=== PATIENT | male | born 1975 | race African-American/Black ===

== ENCOUNTER 2016-11-25 16:02 | Emergency (ER) | payer OTHER ==
[~2016-11-25] VITALS: Ht 188 cm; Wt 75.0 kg
[~2016-11-25 16:02] MED LIST: HYDR-3580 PO; IBUP800T23 PO; WHEEMIS3 XX
[2016-11-25 16:03] VITALS: BP 134/80; PULSE 83; RESP 12; TEMP 97.9; O2SAT 97
[2016-11-25 17:34] VITALS: BP 135/80; PULSE 60; RESP 16; TEMP 98.4; O2SAT 99
[2016-11-25 18:40] LABS: AUTOMATED NEUTROPHIL # 3.6 TH/MM3 (1.8-7.7); BASOPHIL # 0.1 TH/MM3 (0-0.2); BASOPHIL % 0.9 % (0.0-2.0); EOSINOPHIL # 0.2 TH/MM3 (0-0.4); EOSINOPHIL % 2.5 % (0.0-4.0); HEMATOCRIT 37.2 % (39.0-51.0); HEMO FLAGS DIFF FINAL; LYMPH % 30.7 % (9.0-44.0); MEAN CELL VOLUME 75.5 FL (80.0-100.0); MEAN CORPUSCULAR HEMOGLOBIN 24.4 PG (27.0-34.0); MEAN CORPUSCULAR HGB CONC 32.3 % (32.0-36.0); MONO % 11.5 % (0.0-8.0); NEUT % 54.4 % (16.0-70.0); PLATELET COUNT 175 TH/MM3 (150-450); RED BLOOD COUNT 4.93 MIL/MM3 (4.50-5.90); WHITE BLOOD COUNT 6.6 TH/MM3 (4.0-11.0)
[2016-11-25 18:44] LABS: BLOOD, URINE MOD (NEG); COMMENT (UR) CULT NOT INDICATED; CULTURE IF INDICATED CULT NOT INDICATED; GLUCOSE,URINE NEG (NEG); KETONE, URINE NEG (NEG); MUCUS URINE FEW /lpf (OCC); NITRITE,URINE NEG (NEG); PH, URINE 5.5 (5.0-8.5); URINE COLOR YELLOW (YELLW/STRAW)
[2016-11-25 18:54] LABS: ANION GAP 6 MEQ/L (5-15); AST (GOT) 32 U/L (15-37); BICARBONATE 26.3 MEQ/L (21.0-32.0); BLOOD UREA NITROGEN 12 MG/DL (7-18); CHLORIDE 106 MEQ/L (98-107); GLOMERULAR FILTRATION RATE 131 ML/MIN (>89); POTASSIUM 3.7 MEQ/L (3.5-5.1); SODIUM (NA) 138 MEQ/L (136-145)
[2016-11-25 18:56] LABS: ALT (GPT) 37 U/L (12-78)
[2016-11-25 18:57] LABS: ALKALINE PHOSPHATASE 62 U/L (45-117); TOTAL BILIRUBIN ADULT 0.3 MG/DL (0.2-1.0)
--- NOTE | 2016-11-25 19:05 | PD ---
HPI Chief Complaint: Complaint Time Seen by Provider: 17:38 Travel History International Travel<30 days: No Contact w/Intl Traveler<30days: No Traveled to known affect area: No History of Present Illness HPI This is a 41-year-old male who presents to the emergency department with blood in his urine. He says 2 days ago he had an episode of blood-tinged urine which spontaneously subsided. Today again he saw some blood in his urine, constant, moderate severity with no associated lightheadedness or dizziness. He felt like he had a little bit of burning when he urinated. He denies any fevers or chills. He's had one sexual partner in the past 6 months. He denies any Discharge from his penis. [facility] Past Medical History Medical History: Denies Significant Hx Influenza Vaccination: No Past Surgical History Genitourinary Surgery: Yes Social History Alcohol Use: Yes (OCC) Tobacco Use: Yes Substance Use: Yes (MARIJUANA) Allergies-Medications (Allergen,Severity, Reaction): Coded Allergies: No Known Allergies (Unverified , 11/25/16) Reported Meds & Prescriptions Reported Meds & Active Scripts Active No Active Prescriptions or Reported Medications Review of Systems Except as stated in HPI: all other systems reviewed are Neg Physical Exam Narrative GENERAL:Well appearing, no acute distress SKIN: Focused skin assessment warm and dry. HEAD: Atraumatic. Normocephalic. EYES: Pupils equal and round. No injection or drainage. ENT: Moist mucous membranes NECK: Trachea midline. CARDIOVASCULAR: Regular rate and rhythm. No murmur appreciated. RESPIRATORY: Clear to auscultation. Breath sounds equal bilaterally. GASTROINTESTINAL: Abdomen soft, non-tender, nondistended. MUSCULOSKELETAL: No obvious deformities. NEUROLOGICAL: Awake and alert. No obvious cranial nerve deficits. Moving all extremities. PSYCHIATRIC: Appropriate mood and affect; insight and judgment normal. Data Data Last Documented VS Vital Signs Date Time Temp Pulse Resp B/P (MAP) Pulse Ox O2 Delivery O2 Flow Rate FiO2 11/25/16 17:34 98.4 60 16 135/80 (98) 99 Room Air Orders Orders Urinalysis - C+S If Indicated (11/25/16 16:40) Complete Blood Count With Diff (11/25/16 17:45) Comprehensive Metabolic Panel (11/25/16 17:45) Labs Laboratory Tests Test 11/25/16 18:20 11/25/16 18:22 Urine Color YELLOW Urine Turbidity CLEAR Urine pH 5.5 Urine Specific Fri[place] 1.029 Urine Protein TRACE mg/dL Urine Glucose (UA) NEG mg/dL Urine Ketones NEG mg/dL Urine Occult Blood MOD Urine Nitrite NEG Urine Bilirubin NEG Urine Urobilinogen LESS THAN 2.0 MG/DL Urine Leukocyte Esterase NEG Urine RBC 29 /hpf Urine WBC 1 /hpf Urine Mucus FEW /lpf Microscopic Urinalysis Comment CULT NOT INDICATED White Blood Count 6.6 TH/MM3 Red Blood Count 4.93 MIL/MM3 Hemoglobin 12.0 GM/DL Hematocrit 37.2 % Mean Corpuscular Volume 75.5 FL Mean Corpuscular Hemoglobin 24.4 PG Mean Corpuscular Hemoglobin Concent 32.3 % Red Cell Distribution Width 15.0 % Platelet Count 175 TH/MM3 Mean Platelet Volume 8.7 FL Neutrophils (%) (Auto) 54.4 % Lymphocytes (%) (Auto) 30.7 % Monocytes (%) (Auto) 11.5 % Eosinophils (%) (Auto) 2.5 % Basophils (%) (Auto) 0.9 % Neutrophils # (Auto) 3.6 TH/MM3 Lymphocytes # (Auto) 2.0 TH/MM3 Monocytes # (Auto) 0.8 TH/MM3 Eosinophils # (Auto) 0.2 TH/MM3 Basophils # (Auto) 0.1 TH/MM3 CBC Comment DIFF FINAL Differential Comment Blood Urea Nitrogen 12 MG/DL Creatinine 0.79 MG/DL Random Glucose 73 MG/DL Total Protein 7.2 GM/DL Albumin 4.1 GM/DL Calcium Level 9.0 MG/DL Alkaline Phosphatase 62 U/L Aspartate Amino Transf (AST/SGOT) 32 U/L Alanine Aminotransferase (ALT/SGPT) 37 U/L Total Bilirubin 0.3 MG/DL Sodium Level 138 MEQ/L Potassium Level 3.7 MEQ/L Chloride Level 106 MEQ/L Carbon Dioxide Level 26.3 MEQ/L Anion Gap 6 MEQ/L Estimat Glomerular Filtration Rate 131 ML/MIN [facility] Medical Decision Making Medical Screen Exam Complete: Yes Emergency Medical Condition: Yes Interpretation(s) Mild anemia Electrolytes are reassuring Urinalysis demonstrates red blood cells no infection Differential Diagnosis Urinary tract infection, BPH, urethritis, bladder cancer Narrative Course This is a 41-year-old male who presents to the emergency department with hematuria. Labs are obtained which were reassuring. Urinalysis demonstrates no infection. I think he requires follow-up with the urologist. I explained to him the slight risk of bladder cancer. Patient will be discharged. Diagnosis Primary Impression: Hematuria Qualified Codes: R31.9 - Hematuria, unspecified Referrals: Stas Craven MD Patient Instructions: General Instructions Additional Instructions: If you develop severe pain, inability to eat or drink, or fever return to the emergency department. It is very important that you follow-up with a urologist regarding the blood in your urine. Med/Other Pt SpecificInfo: No Change to Meds Scripts No Active Prescriptions or Reported Meds Disposition: 01 DISCHARGE HOME Condition: Stable Arin Brower MD Nov 25, 2016 19:05
== END 2016-11-25 19:20 | disposition home or self-care (01) ==
LOC: NEPD 16:02
DX: R31.9 Hematuria, unspecified (principal); Z72.0 Tobacco use
CPT/HCPCS: 80053; 81001; 85025; 99283